=== PATIENT | female | born 1945 | race Caucasian/White ===

== ENCOUNTER 2016-09-22 12:19 | Outpatient (CLI) | payer MEDICARE | END 2016-09-22 12:20 | disposition home or self-care (01) | DX: C50.311 Malignant neoplasm of lower-inner quadrant of right female breast (principal) ==

== ENCOUNTER 2017-05-14 12:44 | Outpatient (CLI) | payer MEDICARE ==
--- NOTE | 2017-05-14 14:24 | Ultrasound Report ---
RIGHT BREAST ULTRASOUND: 05/14/2017 CLINICAL INDICATION: Followup biopsy-proven right breast cancer. TECHNIQUE: Real-time scanning was performed with delivery representative static images obtained. FINDINGS: Ultrasound of the right lower inner anterior breast was performed. The previously biopsied breast cancer at the 5 o'clock position is again seen, measuring 9 x 8 x 6 mm (previously 8 x 8 x 6 mm on 09/22/2016). Biopsy marker is again noted. IMPRESSION: NO SIGNIFICANT INTERVAL CHANGE IN PREVIOUSLY BIOPSIED RIGHT BREAST CANCER. RECOMMENDATION: ONGOING CLINICAL MANAGEMENT. BIRADS CATEGORY 6-KNOWN MALIGNANCY. JOB #: [id number] EXT JOB #:
== END 2017-05-14 12:45 | disposition home or self-care (01) ==
LOC: DI 12:44
PROVIDERS: ATTEND Internal Medicine Hematology & Oncology
DX: C50.311 Malignant neoplasm of lower-inner quadrant of right female breast (principal)
CPT/HCPCS: 76642

== ENCOUNTER 2017-11-09 09:37 | Outpatient (CLI) | payer MEDICARE ==
--- NOTE | 2017-11-09 10:46 | Ultrasound Report ---
ULTRASOUND RIGHT BREAST: 11/09/2017 CLINICAL INDICATION: Followup biopsy-proven right breast cancer. COMPARISON: 05/14/2017, 09/22/2016. TECHNIQUE: Real-time scanning was performed with security representative static images obtained. FINDINGS: Ultrasound of the right breast was performed. At the 5 o'clock position, 3 cm from the nipple, again is seen a hypoechoic irregularly marginated nodule, with central biopsy marker in place. The nodule now measures 11 x 9 x 6 mm (previously 9 x 8 x 6 mm ). No skin or chest wall involvement is identified. IMPRESSION: SLIGHT INTERVAL INCREASE IN SIZE OF BIOPSY-PROVEN RIGHT BREAST CANCER, NOW MEASURING 11 X 9 X 6 MM (PREVIOUSLY 9 X 8 X 6 MM). RECOMMENDATION: Continued treatment plan as per Dr. Gramajo. BIRADS CATEGORY 6 - KNOWN MALIGNANCY. TD: 11/09/2017 10:44 MTDD
== END 2017-11-09 09:38 | disposition home or self-care (01) ==
LOC: DI 09:37
PROVIDERS: ATTEND Internal Medicine Hematology & Oncology
DX: C50.911 Malignant neoplasm of unspecified site of right female breast (principal)
CPT/HCPCS: 76642

== ENCOUNTER 2018-08-01 09:14 | Outpatient (CLI) | payer MEDICARE ==
--- NOTE | 2018-08-01 16:49 | Ultrasound Report ---
Reason: R BREAST CANCER Procedure Date: 08/01/2018 Accession Number: [id number] / [id number] Procedure: US - Breast Unilateral Limited CPT Code: FULL RESULT: EXAM: Breast Unilateral Limited DATE: 08/01/2018 10:11 AM CLINICAL HISTORY: R BREAST CANCER TECHNIQUE: Real-time ultrasound performed by the technologist in the right breast 5:00, 3 cm from nipple. COMPARISON: Most recent comparison exam of 11/09/2017. FINDINGS: There is an irregular mass with angular margins, hypoechoic echotexture with vascular flow corresponding to biopsy-proven malignancy at 5:00, 3 cm from nipple. Subjectively, the mass appears increased in volume but measures similar to the prior exam. Today's measurements are 9 x 12 x 8 mm compared to 9 x 11 x 6 mm on the prior exam. IMPRESSION: Modest increase in size/volume of biopsy proven malignancy, 5:00 3 cm from nipple now measuring 9 x 12 x 8 mm. Known biopsy-proven malignancy. BI-RADS Category 6. Appropriate action is recommended.
== END 2018-08-01 09:15 | disposition home or self-care (01) ==
LOC: DI 09:14
PROVIDERS: ATTEND Internal Medicine Hematology & Oncology
DX: C50.311 Malignant neoplasm of lower-inner quadrant of right female breast (principal)
CPT/HCPCS: 76642

== ENCOUNTER 2019-01-30 12:07 | Outpatient (CLI) | payer MEDICARE ==
--- NOTE | 2019-01-30 13:35 | Ultrasound Report ---
Reason: R BREAST CANCER Procedure Date: 01/30/2019 Accession Number: [id number] / [id number] Procedure: US - Breast Unilateral Limited CPT Code: FULL RESULT: EXAM: Breast Unilateral Limited DATE: 01/30/2019 1:01 PM CLINICAL HISTORY: R BREAST CANCER COMPARISON: None. TECHNIQUE: Targeted ultrasound was performed of the right breast in the area of clinical concern at 5 o'clock and 3 cm distance from the nipple. Color Doppler was employed as appropriate. FINDINGS: The biopsy-proven the right breast mass at the 5:00 position 3 cm from the nipple is redemonstrated with ill-defined borders and hypoechoic shadowing. Overall dimensions are similar to the previous study and accurate assessment of interval change is limited by the ill-defined shadowing nature of the lesion, approximately 1.1 x 1.1 x 1.5 cm on today's exam. IMPRESSION: Known malignancy. RECOMMENDATION: Appropriate action is recommended. BIRADS CATEGORY 6. RADIA
== END 2019-01-30 12:08 | disposition home or self-care (01) ==
LOC: DI 12:07
PROVIDERS: ATTEND Internal Medicine Hematology & Oncology
DX: C50.311 Malignant neoplasm of lower-inner quadrant of right female breast (principal)
CPT/HCPCS: 76642

== ENCOUNTER 2019-05-24 11:43 | Outpatient (CLI) | payer MEDICARE ==
[2019-05-24 18:10] LABS: CREATININE 0.7 mg/dL (0.4-1.0)
== END 2019-05-24 11:44 | disposition home or self-care (01) ==
LOC: LAB.S 11:43
PROVIDERS: ATTEND Student in an Organized Health Care Education/Training Program
DX: C50.911 Malignant neoplasm of unspecified site of right female breast (principal)
CPT/HCPCS: 36415; 82565

== ENCOUNTER 2019-09-06 10:39 | Outpatient (CLI) | payer MEDICARE ==
--- NOTE | 2019-09-06 12:34 | Ultrasound Report ---
Reason: BREAST CA Procedure Date: 09/06/2019 Accession Number: [id number] / [id number] Procedure: US - Breast Unilateral Limited CPT Code: Final Report FULL RESULT: EXAM: Breast Unilateral Limited DATE: 09/06/2019 11:21 AM CLINICAL HISTORY: The patient is a 74-year-old female with a personal history of biopsy-proven right breast cancer. Follow-up examination requested to assess interval change. TECHNIQUE: Targeted ultrasound was performed in the area of clinical concern in the 5:00/lower inner quadrant. Color Doppler was employed as appropriate. Business [employer]ist [employer] static images obtained. COMPARISON: 01/30/2019 FINDINGS: There is an irregularly-marginated solid mass in the 5:00 axis 3 cm from the nipple measuring approximately 11 x 11 x 15 mm. This is stable in size and configuration when compared to the prior examination. The surrounding glandular tissue is unremarkable. There is no evidence for skin invasion. IMPRESSION: Stable examination, biopsy-proven malignant lesion measures 15 mm. RECOMMENDATION: Appropriate action is recommended. BI-RADS 6, Known Malignancy
== END 2019-09-06 10:40 | disposition home or self-care (01) ==
LOC: DI 10:39
PROVIDERS: ATTEND Physician Assistant
DX: C50.311 Malignant neoplasm of lower-inner quadrant of right female breast (principal)
CPT/HCPCS: 76642

== ENCOUNTER 2020-05-07 13:37 | Outpatient (CLI) | payer MEDICARE ==
--- NOTE | 2020-05-08 14:14 | Ultrasound Report ---
LIMITED ULTRASOUND OF RIGHT BREAST AND AXILLA: 05/07/2020 CLINICAL: Patient returns for additional imaging over a malignant mass in the right breast. Prior right breast ultrasounds 02/05/2020, 01/30/2019, and 09/22/2016. Color flow and real-time ultrasound of the right breast 5 o'clock, and axilla regions were performed. Hayes scale images of the real-time examination were reviewed. There is a 1.5 x 1.2 x 0.9 cm (previously 1.5 x 1.1 x 1.1 cm and more remotely 0.8 x 0.8 x 0.6 cm on 09/22/2016) irregular mass with a spiculated margin in the right breast at 5 o'clock anterior depth 3 c m from the nipple. This irregular mass is hypoechoic with increased posterior acoustic enhancement w hich makes the posterior margin difficult to measure. This abnormality is stable to increased in siz e compared to August 2019. Color flow imaging demonstrates that there is no vascularity present. No significant abnormalities were seen sonographically in the right axilla. IMPRESSION: KNOWN BIOPSY PROVEN MALIGNANCY Stable to increased 1.5 cm irregular mass in the right breast 5:00 o'clock 3 cm from the nipple. Biop sy proven malignancy. The mass is increased in size compared to more remote 2017 exams. No axillary adenopathy demonstrated. No prior mammograms are available. Mammogram or breast MRI may be helpful to determine the extent of disease if clinically indicated. This exam was interpreted at Station ID: [id number]. Electronically Signed By: Cody Franklin M.D. slc/:05/07/2020 15:09:55 Ultrasound BI-RADS: 6 Known biopsy proven malignancy BI-RADS CATEGORY: (6) - 6 RECOMMENDATION: (ADDMAM) - Recommend additional mammographic views. recall n/a LATERALITY: (B)
== END 2020-05-07 13:38 | disposition home or self-care (01) ==
LOC: DI 13:37
PROVIDERS: ATTEND Internal Medicine Hematology & Oncology
DX: C50.311 Malignant neoplasm of lower-inner quadrant of right female breast (principal)
CPT/HCPCS: 76642

== ENCOUNTER 2020-10-02 13:37 | Outpatient (CLI) | payer MEDICARE ==
--- NOTE | 2020-10-03 16:53 | Ultrasound Report ---
LIMITED ULTRASOUND OF RIGHT BREAST: 10/02/2020 CLINICAL: Patient returns for additional imaging over known right breast cancer. Comparison is made to exams dated: 05/07/2020 ultrasound, 01/30/2019 ultrasound, 08/01/2018 ultrasound , and 09/22/2016 ultrasound - [facility]. Color flow ultrasound of the right breast 5 o'clock region was performed. Hayes scale images of the r eal-time examination were reviewed. There is a 1.3 cm x 1.1 cm x 0.5 cm irregular mass with a spiculated margin in the right breast at 5 o'clock anterior depth 3 cm from the nipple. This irregular mass is hypoechoic. Color flow imaging demonstrates that there is increased vascularity. The mass is not significantly changed in size whe n compared to the most recent ultrasound from 05/07/2020 given differences in measurement technique. H owever, the mass has increased in size when compared to the more remote exam from 09/22/2016, wheen it measured 0.8 x 0.8 x 0.6 cm. IMPRESSION: KNOWN BIOPSY PROVEN MALIGNANCY The 1.3 cm x 1.1 cm x 0.5 cm irregular mass in the right breast is consistent with the known carcinom a and is biopsy positive for malignancy. No prior mammograms are available. Mammogram or breast MRI may be helpful to determine the extent of disease if clinically indicated. This exam was interpreted at Station ID: [id number]. Electronically Signed By: Alvin Maldonado M.D. ar/:10/03/2020 11:50:54 Ultrasound BI-RADS: 6 Known biopsy proven malignancy BI-RADS CATEGORY: (6) - 6 RECOMMENDATION: (ADDMAM) - Recommend additional mammographic views. no recall LATERALITY: (B)
== END 2020-10-02 13:38 | disposition home or self-care (01) ==
LOC: DI 13:37
PROVIDERS: ATTEND Internal Medicine Hematology & Oncology
DX: C50.311 Malignant neoplasm of lower-inner quadrant of right female breast (principal)

== ENCOUNTER 2020-12-23 11:40 | Outpatient (CLI) | payer MEDICARE ==
--- NOTE | 2020-12-24 12:12 | Ultrasound Report ---
LIMITED ULTRASOUND OF RIGHT BREAST AND AXILLA: 12/23/2020 CLINICAL: Patient returns for sonographic evaluation of right breast mass, known cancer. Comparison is made to exams dated: 10/02/2020 ultrasound, 05/07/2020 ultrasound, 01/30/2019 ultrasound, 08/01/2018 ultrasound, 05/14/2017 ultrasound, and 09/22/2016 ultrasound - [facility]. Color flow and real-time ultrasound of the right breast 5 o'clock, and axilla regions were performed. Hayes scale images of the real-time examination were reviewed. There is a 1.2 cm x 1.1 cm x 0.5 cm irregular mass with a spiculated margin in the right breast at 5 o'clock anterior depth 3 cm from the nipple. This irregular mass is hypoechoic. Color flow imaging demonstrates that there is increased vascularity. The mass is not significantly changed but appears increased compared to 2017. No significant abnormalities were seen sonographically in the right axilla. IMPRESSION: KNOWN BIOPSY PROVEN MALIGNANCY Stable 1.2 cm irregular mass in the right breast consistent with known biopsy positive malignancy. Continued follow-up ultrasound in 3 months is recommended. Patient undergoing alternative treatments. Patient declines mammography evaluation. This exam was interpreted at Station ID: [id number]. Electronically Signed By: Cody Franklin M.D. slc/:12/23/2020 12:47:28 Ultrasound BI-RADS: 6 Known biopsy proven malignancy BI-RADS CATEGORY: (6) - 6 Ultrasound [id number] 3 month follow-up LATERALITY: (B)
== END 2020-12-23 11:41 | disposition home or self-care (01) ==
LOC: DI 11:40
PROVIDERS: ATTEND Physician Assistant
DX: C50.311 Malignant neoplasm of lower-inner quadrant of right female breast (principal)

== ENCOUNTER 2021-04-02 14:17 | Outpatient (CLI) | payer MEDICARE ==
--- NOTE | 2021-04-03 09:37 | Ultrasound Report ---
LIMITED ULTRASOUND OF RIGHT BREAST AND AXILLA: 04/02/2021 CLINICAL: Patient returns for additional imaging over a known mass in the right breast. Comparison is made to exams dated: 12/23/2020 ultrasound, 10/02/2020 ultrasound, 05/07/2020 ultrasound, 01/30/2019 ultrasound, 08/01/2018 ultrasound, and 11/09/2017 ultrasound - [facility] . Color flow ultrasound of the right breast 5 o'clock, and axilla regions was performed. Hayes scale im ages of the real-time examination were reviewed. There is a 1.1 cm x 1 cm x 0.5 cm irregular mass with a spiculated margin in the right breast at 5 o' clock anterior depth 3 cm from the nipple. This irregular mass is hypoechoic. This abnormality is n ot significantly changed. Color flow imaging demonstrates that there is increased vascularity. The mass is not significantly changed in size compred to recent exams given differences in measuring zacarias hnique. However, the mass has increased in size when compared to the more remote exam from 09/22/2016. No significant abnormalities were seen sonographically in the right axilla. IMPRESSION: KNOWN BIOPSY PROVEN MALIGNANCY The 1.1 cm irregular mass in the right breast is consistent with the known biopsy positive malignancy . Continued follow-up ultrasound in 3 months is recommended. Patient undergoing alternative treatments. Patient declines mammography evaluation. This exam was interpreted at Station ID: [id number]. Electronically Signed By: Alvin Maldonado M.D. ar/:04/02/2021 15:55:26 Ultrasound BI-RADS: 6 Known biopsy proven malignancy BI-RADS CATEGORY: (6) - 6 Ultrasound [id number] 3 month follow-up LATERALITY: (R)
== END 2021-04-02 14:18 | disposition home or self-care (01) ==
LOC: DI 14:17
PROVIDERS: ATTEND Internal Medicine Hematology & Oncology
DX: C50.311 Malignant neoplasm of lower-inner quadrant of right female breast (principal)

== ENCOUNTER 2021-07-09 13:48 | Outpatient (CLI) | payer MEDICARE ==
--- NOTE | 2021-07-11 08:57 | Ultrasound Report ---
LIMITED ULTRASOUND OF RIGHT BREAST AND AXILLA: 07/09/2021 CLINICAL: Patient returns for sonographic evaluation of right breast mass. Comparison is made to exams dated: 04/02/2021 ultrasound, 12/23/2020 ultrasound, 10/02/2020 ultrasound, 05/07/2020 ultrasound, 01/30/2019 ultrasound, and 08/01/2018 ultrasound - [facility] . Color flow and continuous wave Doppler ultrasound of the right breast 5 o'clock, and axilla regions w ere performed. Hayes scale images of the real-time examination were reviewed. There is a 1.1 cm x 1 cm x 0.5 cm irregular mass with a spiculated margin in the right breast at 5 o' clock anterior depth 3 cm from the nipple. This irregular mass is hypoechoic. This abnormality is n ot significantly changed. Color flow imaging demonstrates that there is increased vascularity. The mass is not significantly changed in size compred to recent exams given differences in measuring zacarias hnique. However, the mass has increased in size when compared to the more remote exam from 09/22/2016. IMPRESSION: KNOWN BIOPSY PROVEN MALIGNANCY There has been no significant change in size of the biopsy proven malignant right breast mass when co mpared with prior study. No sonographic findings of axillary lymphadenopathy. This exam was interpreted at Station ID: [id number]. Electronically Signed By: Taj Goldstein M.D. jr/:07/09/2021 14:24:47 Ultrasound BI-RADS: 6 Known biopsy proven malignancy BI-RADS CATEGORY: (6) - 6 Unspecified - other recall n/a LATERALITY: (B)
== END 2021-07-09 13:49 | disposition home or self-care (01) ==
LOC: DI 13:48
PROVIDERS: ATTEND Internal Medicine Hematology & Oncology
DX: C50.911 Malignant neoplasm of unspecified site of right female breast (principal)

== ENCOUNTER 2021-10-09 14:04 | Outpatient (CLI) | payer MEDICARE ==
--- NOTE | 2021-10-10 07:46 | Ultrasound Report ---
LIMITED ULTRASOUND OF RIGHT BREAST: 10/09/2021 CLINICAL: Patient returns for additional imaging over a suspected mass in the right breast. Short-ter m follow-up. Comparison is made to exams dated: 07/09/2021 ultrasound, 04/02/2021 ultrasound, 12/23/2020 ultrasound , 10/02/2020 ultrasound, 05/07/2020 ultrasound, and 01/30/2019 ultrasound - [facility] . Color flow and real-time ultrasound of the right breast 5 o'clock region were performed. Hayes scale images of the real-time examination were reviewed. There is a 1.4 cm x 1.4 cm x 0.6 cm irregular mass with a spiculated margin in the right breast at 5 o'clock anterior depth 3 cm from the nipple. This irregular mass is hypoechoic. Color flow imaging demonstrates that there is increased vascularity. The mass is stable to minimally increased in size when compared to recent exams given differences in measuring technique. However, the mass has signif icantly increased in size when compared to the more remote exam from 2017. No significant sonographic abnormality is seen in the right axilla. IMPRESSION: KNOWN BIOPSY PROVEN MALIGNANCY The known biopsy proven malignant right breast mass is stable to minimally increased in size. No sign ificant right axillary lymphadenopathy. This exam was interpreted at Station ID: [id number]. Electronically Signed By: Alvin Maldonado M.D. ar/:10/09/2021 15:57:47 Ultrasound BI-RADS: 6 Known biopsy proven malignancy BI-RADS CATEGORY: (6) - 6 Unspecified - other recall n/a LATERALITY: (B)
== END 2021-10-09 14:05 | disposition home or self-care (01) ==
LOC: DI 14:04
PROVIDERS: ATTEND Internal Medicine Hematology & Oncology
DX: C50.311 Malignant neoplasm of lower-inner quadrant of right female breast (principal)

== ENCOUNTER 2022-01-13 10:49 | Outpatient (CLI) | payer MEDICARE ==
--- NOTE | 2022-01-14 08:59 | Ultrasound Report ---
LIMITED ULTRASOUND OF RIGHT BREAST AND AXILLA: 01/13/2022 CLINICAL: Short term follow up of the right breast. Known rt breast mass at 5 o'c 3cmfn. Comparison is made to exams dated: 10/09/2021 ultrasound, 07/09/2021 ultrasound, 04/02/2021 ultrasound , 12/23/2020 ultrasound, 10/02/2020 ultrasound, and 05/07/2020 ultrasound - [facility] . Color flow and real-time ultrasound of the right breast 5 o'clock, and axilla regions were performed. Hayes scale images of the real-time examination were reviewed. There is a 1.2 cm x 1.2 cm x 0.5 cm irregular mass with a spiculated margin in the right breast at 5 o'clock anterior depth 3 cm from the nipple. This irregular mass is hypoechoic. Color flow imaging demonstrates that there is increased vascularity. The mass is not significantly changed in size com pred to recent exams given differences in measuring technique. However, the mass has increased in siz e when compared to the more remote exam from 09/22/2016. No significant abnormalities were seen sonographically in the right axilla. IMPRESSION: KNOWN BIOPSY PROVEN MALIGNANCY The known biopsy proven malignant right breast mass has not significantly changed in size. No signifi cant right axillary lymphadenopathy. This exam was interpreted at Station ID: [id number]. Electronically Signed By: Alvin Maldonado M.D. ar/:01/13/2022 14:22:21 Ultrasound BI-RADS: 6 Known biopsy proven malignancy BI-RADS CATEGORY: (6) - 6 Unspecified - other recall n/a LATERALITY: (B)
== END 2022-01-13 10:50 | disposition home or self-care (01) ==
LOC: DI 10:49
PROVIDERS: ATTEND Internal Medicine Hematology & Oncology
DX: C50.911 Malignant neoplasm of unspecified site of right female breast (principal)

== ENCOUNTER 2023-02-03 09:44 | Outpatient (CLI) | payer MEDICARE ==
--- NOTE | 2023-02-04 11:03 | Ultrasound Report ---
LIMITED ULTRASOUND OF RIGHT BREAST AND AXILLA: 02/03/2023 CLINICAL: Patient returns today to evaluate a focal asymmetry in the right breast. Comparison is made to exams dated: 02/03/2023 mammogram, 01/13/2022 ultrasound, 10/09/2021 ultrasound, 07/09/2021 ultrasound, 04/02/2021 ultrasound, and 12/23/2020 ultrasound - [facility]. Color flow and real-time ultrasound of the right breast lower inner quadrant and axilla regions were performed. Hayes scale images of the real-time examination were reviewed. No significant abnormalities were seen sonographically in the right breast or the right axilla. There is subcutaneous edema and skin thickening. IMPRESSION: BENIGN There is no sonographic evidence of malignancy. No mass in the region of possible right breast asymmetry. This is likely due to post treatment edema. No enlarged right axillary lymph nodes. New mammographic baseline established for the right breast. A 1 year screening mammogram is recommended. Exam findings were conveyed to the patient. This exam was interpreted at Station ID: [id number]. Electronically Signed By: Cody Franklin M.D. slc/:02/03/2023 11:23:19 Ultrasound BI-RADS: 2 Benign BI-RADS CATEGORY: (2) - 2 Mammogram [id number] 1 year screening LATERALITY: (B)
--- NOTE | 2023-02-04 11:03 | Mammography Report ---
BILATERAL DIGITAL DIAGNOSTIC MAMMOGRAM 3D/2D: 02/03/2023 CLINICAL: Personal history of right breast cancer. Due for bilateral. Comparison is made to exams dated: 07/05/2015 mammogram, 06/19/2015 mammogram - [facility], 01/13/2022 ultrasound, and 10/09/2021 ultrasound - [facility]. There are scattered areas of fibroglandular density in both breasts (category b / 25%-50% glandular t issue). There is a possible focal asymmetry in the right breast at 4 o'clock anterior depth. This is less pr ominent. Post-operative findings in the right breast, new. Right breast skin thickening. No other significant masses, calcifications, or other findings are seen in either breast. IMPRESSION: INCOMPLETE: NEEDS ADDITIONAL IMAGING EVALUATION Post-operative findings in the right breast. The possible focal asymmetry in the right breast is indeterminate. A targeted ultrasound is recommended and will immediately follow. This exam was interpreted at Station ID: [id number]. NOTE: For mammograms, a report in lay terms will be sent to the patient. Approximately 15% of breast malignancies will not be visualized mammographically. In the management of a palpable breast mass, a negative mammogram must not discourage biopsy of a clinically suspicious lesion. Electronically Signed By: Cody Franklin M.D. slc/:02/03/2023 11:18:37 ACR BI-RADS Category 0: Incomplete 3340F PARENCHYMAL PATTERN: (A) - The breast(s) demonstrate(s) scattered fibroglandular densities. BI-RADS CATEGORY: (0) - 0 Ultrasound [id number] Immediate follow-up LATERALITY: (B)
== END 2023-02-03 09:45 | disposition home or self-care (01) ==
LOC: DI 09:44
PROVIDERS: ATTEND Internal Medicine Hematology & Oncology
DX: R92.8 Other abnormal and inconclusive findings on diagnostic imaging of breast (principal); Z85.3 Personal history of malignant neoplasm of breast; Z80.3 Family history of malignant neoplasm of breast